=== PATIENT | female | born 1960 | race Two or more races ===

== ENCOUNTER 2022-06-16 10:04 | Emergency (ER) | payer OTHER ==
[~2022-06-16] VITALS: Ht 160 cm; Wt 54.4 kg
[2022-06-16] MEDS ORDERED: FLAGYL375 MG PO (10:20)
== END 2022-06-16 13:44 | disposition home or self-care (01) ==
LOC: ER 10:04
DX: K29.60 Other gastritis without bleeding (principal); Z88.0 Allergy status to penicillin

== ENCOUNTER 2022-07-10 10:40 | Emergency (ER) | payer OTHER ==
[~2022-07-10] VITALS: Ht 160 cm; Wt 54.4 kg
[~2022-07-10 10:40] MED LIST: FLAGYL375 MG PO
[2022-07-10] MEDS ORDERED: PROTONIX40 MG PO (11:32)
== END 2022-07-10 15:14 | disposition home or self-care (01) ==
LOC: ER 10:40
DX: K52.89 Other specified noninfective gastroenteritis and colitis (principal)

== ENCOUNTER 2022-08-25 20:23 | Emergency (ER) | payer OTHER ==
[~2022-08-25] VITALS: Ht 160 cm; Wt 54.4 kg
[~2022-08-25 20:23] MED LIST changes: +PROTONIX40 MG PO
[2022-08-25] MEDS ORDERED: PREVACID15 M1 (20:28)
== END 2022-08-26 01:59 ==
LOC: ER 20:23
DX: K29.70 Gastritis, unspecified, without bleeding (principal); Z88.0 Allergy status to penicillin

== ENCOUNTER 2024-10-08 07:53 | Emergency (ER) | payer OTHER ==
[~2024-10-08] VITALS: Ht 160 cm; Wt 63.0 kg
[~2024-10-08 07:53] MED LIST changes: +PREVACID15 M1
[2024-10-08] MEDS ORDERED: 0.9 % SODIUM CHLORIDE 1,000 ML IV SCH (08:27)
[2024-10-08] MEDS ORDERED: FAMOTIDINE/PF 20 MG/2 ML VIAL ONE (08:27)
[2024-10-08] MEDS ORDERED: FAMOTIDINE/PF 20 MG/2 ML VIAL IV ONE (08:30)
[2024-10-08] MEDS ORDERED: MORPHINE SULFATE 4 MG/ML VIAL IV ONE (08:30)
[2024-10-08 08:52] LABS: BASO % 0.5 % (0.1-1.2); EOS # 0.12 (0.04-0.54); EOS % 1.9 % (0.7-7.0); HEMATOCRIT 36.9 % (34.1-44.9); HEMOGLOBIN 12.8 g/dL (11.2-15.7); LYMPH % 20.6 % (19.3-53.1); MEAN CORPUSCULAR HEMOGLOBIN 29.5 pg (25.6-32.2); MONO # 0.25 (0.24-0.82); NEUT # 4.59 (1.56-6.13); NEUT % 72.8 % (34.0-71.1); PLATELET COUNT 200 K/uL (163-369); RED BLOOD COUNT 4.34 M/uL (3.93-5.22); RED CELL DISTRIBUTION WIDTH 13.2 % (11.6-14.4)
[2024-10-08] MEDS ORDERED: ONDANSETRON HCL 2 MG/ML VIAL ONE ×2 (09:07→15:34)
[2024-10-08] MEDS ORDERED: ONDANSETRON HCL 2 MG/ML VIAL IV STA ×2 (09:08→15:34)
[2024-10-08 09:27] LABS: CALCIUM 8.9 mg/dL (8.5-10.1); CREATININE SERUM 0.71 mg/dL (0.55-1.02); GFR 83.41; POTASSIUM 4.1 mEq/L (3.5-5.1)
[2024-10-08 11:32] LABS: URINE APPEARANCE Clear; URINE BILIRRUBIN Negative (NEGATIVE); URINE BLOOD Negative; URINE COLOR Yellow; URINE GLUCOSE Negative (NEGATIVE); URINE KETONE Negative (NEGATIVE); URINE LEUKOCYTE Negative; URINE NITRATE Negative; URINE PROTEIN Negative (NEGATIVE); URINE UROBILINOGEN 0.2 E.U./dl
[2024-10-08 11:35] LABS: URINE BACTERIA 18.3 uL (0.0-1933); URINE EPITHELIAL CELLS 7.4 uL (0.0-38.8); URINE WBC 3.6 uL (0.0-23.2)
[2024-10-08 12:04] LABS: URINE CAST 0.14 uL (0.0-1.40); URINE RBC 1.3 uL (0.0-20.8)
[2024-10-08] MEDS ORDERED: PROBIOTIC1 EAC2 PO (17:05)
[2024-10-08] MEDS ORDERED: LEVSIN/SL0.125 MG SL (17:05)
[2024-10-08] MEDS ORDERED: PROTONIX40 MG PO (17:05)
== END 2024-10-08 17:13 | disposition home or self-care (01) ==
LOC: ER 08:25
PROVIDERS: Emergency Medicine
DX: K52.89 Other specified noninfective gastroenteritis and colitis (principal); Z88.0 Allergy status to penicillin; K21.9 Gastro-esophageal reflux disease without esophagitis

== ENCOUNTER → 2024-12-28 | Emergency (ER) | payer OTHER ==
[~2024-12-28] VITALS: Ht 162.6 cm; Wt 63.5 kg
[~2024-12-28] MED LIST changes: +KETOROLAC TROMETHAMINE 10 MG TABLET PO ONE; +LEVSIN/SL0.125 MG SL; +NORFLEX100MG PO; +PROBIOTIC1 EAC2 PO
== END | disposition home or self-care (01) ==
LOC: ER 20:18
DX: S40.021A Contusion of right upper arm, initial encounter (principal); V49.9XXA Car occupant (driver) (passenger) injured in unspecified traffic accident, initial encounter; Y93.89 Activity, other specified; Y92.413 State road as the place of occurrence of the external cause; Y99.9 Unspecified external cause status; Z88.0 Allergy status to penicillin

== ENCOUNTER 2025-01-04 08:31 | Emergency (ER) | payer OTHER ==
[~2025-01-04] VITALS: Ht 160 cm; Wt 61.7 kg
[~2025-01-04 08:31] MED LIST changes: -KETOROLAC TROMETHAMINE 10 MG TABLET PO ONE
[2025-01-04] MEDS ORDERED: VALACYCLOVIR1000 MG PO (08:54)
[2025-01-04] MEDS ORDERED: ACETAMINOPHEN500 M1 PO (08:54)
[2025-01-04] MEDS ORDERED: ZYRTEC10 M3 PO (08:54)
== END 2025-01-04 09:09 | disposition home or self-care (01) ==
LOC: ER 08:46
DX: B02.9 Zoster without complications (principal); Z88.0 Allergy status to penicillin

== ENCOUNTER → 2025-04-21 | Emergency (ER) | payer OTHER ==
[~2025-04-21] VITALS: Ht 160 cm; Wt 61.7 kg
[~2025-04-21] MED LIST changes: +0.9 % SODIUM CHLORIDE 500 ML IV ONE; +ACETAMINOPHEN500 M1 PO; +FAMOTIDINE/PF 20 MG/2 ML VIAL IV PUSH ONE; +FAMOTIDINE/PF 20 MG/2 ML VIAL ONE; +KETOROLAC TROMETHAMINE 30 MG VIAL IU ONE; +KETOROLAC TROMETHAMINE 30 MG VIAL ONE; +ONDANSETRON HCL 2 MG/ML VIAL IV ONE; +ONDANSETRON HCL 2 MG/ML VIAL ONE; +VALACYCLOVIR1000 MG PO; +ZYRTEC10 M3 PO
[2025-04-21 06:26] VITALS: BP 110/58; O2SAT 98
[2025-04-21 08:21] LABS: BASO % 0.4 % (0.1-1.2); EOS # 0.03 (0.04-0.54); EOS % 0.7 % (0.7-7.0); LYMPH # 0.50 (1.18-3.74); LYMPH % 11.1 % (19.3-53.1); MEAN PLATELET VOLUME 9.70 fl (9.4-12.4); MONO # 0.38 (0.24-0.82); MONO % 8.4 % (4.7-12.5); NEUT # 3.57 (1.56-6.13); NEUT % 79.2 % (34.0-71.1); RED CELL DISTRIBUTION WIDTH 13.2 % (11.6-14.4)
[2025-04-21 08:52] LABS: URINE APPEARANCE Clear; URINE BILIRRUBIN Negative (NEGATIVE); URINE BLOOD Negative; URINE COLOR Yellow; URINE GLUCOSE Negative (NEGATIVE); URINE KETONE Trace (NEGATIVE); URINE LEUKOCYTE Negative; URINE NITRATE Negative; URINE PROTEIN Negative (NEGATIVE); URINE UROBILINOGEN 0.2 E.U./dl
[2025-04-21 08:56] LABS: URINE BACTERIA 21.7 uL (0.0-1933); URINE EPITHELIAL CELLS 7.4 uL (0.0-38.8); URINE RBC 6.7 uL (0.0-20.8); URINE WBC 8.7 uL (0.0-23.2)
[2025-04-21 09:12] LABS: ALT/SGPT 57.0 U/L (12-78); AST/SGOT 37.0 U/L (15-37); BILIRUBIN TOTAL 0.37 mg/dL (0.3-1.2); BILIRUBIN,CONJUGATED 0.11 mg/dL (0.0-0.2); BUN CREA RATIO 28.0 (7.0-25.0); CREATININE SERUM 0.6 mg/dL (0.55-1.02); GFR 100.97; GLUCOSE FASTING 123.0 mg/dL (65-100); OSMOLALITY SERUM 280.0 MOSM/KG (275-295)
[2025-04-21 09:14] LABS: COVID-19 AG NEGATIVE (NEGATIVE)
[2025-04-21 09:20] LABS: URINE CAST 0.42 uL (0.0-1.40)
== END | disposition home or self-care (01) ==
LOC: ER 06:18
PROVIDERS: Emergency Medicine
DX: R10.13 Epigastric pain (principal); R10.9 Unspecified abdominal pain; R05.8 Other specified cough; J06.9 Acute upper respiratory infection, unspecified; R11.2 Nausea with vomiting, unspecified; Z88.0 Allergy status to penicillin; Z20.822 Contact with and (suspected) exposure to COVID-19